=== PATIENT | female | born 1955 | race Caucasian/White ===

== ENCOUNTER → 2016-10-07 | Day surgery (SDC) | payer OTHER ==
[~2016-10-07] VITALS: Ht 160 cm; Wt 119.5 kg
[~2016-10-07] MED LIST: ALDACTONE25 MG PO; CLARITIN10 MG PO; COLACE100 MG PO; COREG12.5 MG PO; CYMBALTA60 MG PO; FEMARA 2.5 MG2.5 MG PO; HYDROCODON-ACE1 EAC4 PO; IBRANCE125 MG PO; K-TAB 10MEQ10 MEQ PO; LASIX40 MG PO; OXYGEN M-15 INH; ZANTAC300 MG PO; ZOFRAN8 MG PO; ZYLOPRIM300 MG PO
--- NOTE | ~2016-10-07 | OR ---
PATIENT'S NAME: ROLF IBARRA [facility] AGE: 61 Y [address] ROOM: [place] [address] LOCATION: [facility] [place] DATE: 10/07/2016 OR/Procedure Report DISCHARGE DATE: FAMILY PHYSICIAN: Jac Fernandes ATTENDING PHYSICIAN: Jerry Mccollum SURGEON: Jerry Mccollum MD/KAYLEIGH AUTHORIZATION MANAGER: DATE OF PROCEDURE: 10/07/2016 PREOPERATIVE DIAGNOSIS: Nonrestorable dentition. POSTOPERATIVE DIAGNOSIS: Nonrestorable dentition. PROCEDURE: Surgical removal of all remaining teeth. BLOOD LOSS: Minimal. OPERATIVE SUMMARY: After adequate IV induction and oral tracheal intubation. The patient was prepped and draped in the usual manner for intraoral procedure. A full-thickness mucoperiosteal flap was raised on the facial surface of the maxillary and mandibular alveolar ridges. Tooth numbers 3 through 6, 8, 9, 10 through 14, 17, 21 through 29 were removed with forceps and elevators without difficulty. Excess bony prominences were removed using rongeurs. Excess soft tissue was sharply excised. The areas were irrigated with sterile saline, closed with running interlocking 3-0 chromic suture. We attempted to place her dentures and dentures had no retention whatsoever. We therefore left them out and gave them to her . They plan on seeing [facility] tomorrow for alteration of the dentures. JERRY MCCOLLUM MD/KAYLEIGH MGT/tyler /[id number] d: t: 10/07/16 1723, OPERATIVE SUMMARY
[2016-10-07 13:10] LABS: ALBUMIN 3.2 gm/dL (3.5-5.0); ALK PHOS 49 IU/L (33-138); ALT 17 IU/L (12-78); ANION GAP 10.9 (10.0-19.0); AST 27 IU/L (10-40); BLOOD UREA NITROGEN 18 mg/dL (6-24); CALCIUM 9.2 mg/dL (8.5-10.5); CHLORIDE 101 mMol/L (96-110); CO2 30 mMol/L (22-32); CREATININE 0.7 mg/dL (0.5-1.1); MAGNESIUM 1.5 mg/dL (1.8-2.6); POTASSIUM 3.9 mMol/L (3.7-5.1); SODIUM 138 mMol/L (135-145); TOTAL BILIRUBIN 0.9 mg/dL (0.0-1.5); TOTAL PROTEIN 7.2 g/dL (6.0-8.4)
== END ==
LOC: GPOC 10-04 14:00 → GSDC 11:01 → GPOC 11:30
PROVIDERS: Surgery
PROC: 0CDWXZ1 Extraction of Upper Tooth, Multiple, External Approach (ICD-10-PCS; principal; 2016-10-07)
PROC: 0CB7XZX Excision of Tongue, External Approach, Diagnostic (ICD-10-PCS; 2016-10-07)
DX: K00.7 Teething syndrome (principal); K14.0 Glossitis; K02.9 Dental caries, unspecified; I10 Essential (primary) hypertension; D64.9 Anemia, unspecified; K21.9 Gastro-esophageal reflux disease without esophagitis; J32.9 Chronic sinusitis, unspecified; M19.90 Unspecified osteoarthritis, unspecified site; M10.9 Gout, unspecified; E83.51 Hypocalcemia; E87.6 Hypokalemia; C50.919 Malignant neoplasm of unspecified site of unspecified female breast; M48.54XA Collapsed vertebra, not elsewhere classified, thoracic region, initial encounter for fracture; Z79.891 Long term (current) use of opiate analgesic; Z79.899 Other long term (current) drug therapy
CPT/HCPCS: J1100; J2001; J2405; J2550; J3010; J7030